=== PATIENT | male | born 1955 | race Two or more races ===

== ENCOUNTER 2022-10-14 11:52 | Emergency (ER) | payer OTHER ==
[~2022-10-14] VITALS: Ht 180.3 cm; Wt 81.6 kg
== END 2022-10-14 16:55 ==
LOC: ER 11:52
DX: S00.83XA Contusion of other part of head, initial encounter (principal); W19.XXXA Unspecified fall, initial encounter; Y93.89 Activity, other specified; Y92.89 Other specified places as the place of occurrence of the external cause; Y99.9 Unspecified external cause status